=== PATIENT | male | born 1935 | race Caucasian/White ===

== ENCOUNTER → 2016-09-14 | Outpatient (REF) | payer MEDICARE ==
[~2016-09-14] MED LIST: /AUGM875TA OR; ACTO45TA OR; ASPI81TA45 OR; FISH1000 OR; HYDR25TA6 OR; LIPI20TA OR; LISI2.5T OR; LOPR50TA OR; OMEGA 3-6-9; PLAV75TA2 OR; TRIC145T19 OR
[2016-09-14 18:10] LABS: CALCIUM LEVEL 9.4 MG/DL (8.8-10.2); CREATININE FOR GFR 2.6 MG/DL (0.70-1.30); GLOMERULAR FILTRATION RATE 25.3 (>35); POTASSIUM SERUM 4.9 MEQ/L (3.5-5.1)
== END ==
LOC: M SFHCCLAY 12:23
PROVIDERS: ATTEND Family Medicine
DX: E11.40 Type 2 diabetes mellitus with diabetic neuropathy, unspecified (principal)
CPT/HCPCS: 80048; 83036; 93005; G0463

== ENCOUNTER → 2016-10-03 | Outpatient (REF) | payer MEDICARE ==
[2016-10-03 17:18] LABS: CALCIUM LEVEL 9.1 MG/DL (8.8-10.2); CREATININE FOR GFR 2.46 MG/DL (0.70-1.30); PHOSPHORUS LEVEL 4.2 MG/DL (2.5-4.9); POTASSIUM SERUM 4.4 MEQ/L (3.5-5.1)
== END ==
LOC: M SFHCCLAY 10:50
PROVIDERS: ATTEND Family Medicine
DX: N18.4 Chronic kidney disease, stage 4 (severe) (principal)

== ENCOUNTER → 2016-10-17 | Outpatient (REF) | payer MEDICARE | END | disposition home or self-care (01) | LOC: M SFHCCLAY 16:28 | PROVIDERS: ATTEND Family Medicine | DX: K52.9 Noninfective gastroenteritis and colitis, unspecified (principal); Z53.8 Procedure and treatment not carried out for other reasons ==

== ENCOUNTER → 2016-10-27 | Outpatient (REF) | payer MEDICARE | LOC: M SFHCCLAY 16:25 | PROVIDERS: ATTEND Family Medicine | DX: K52.9 Noninfective gastroenteritis and colitis, unspecified (principal) ==

== ENCOUNTER → 2016-12-21 | Outpatient (CLI) | payer MEDICARE ==
--- NOTE | 2016-12-21 15:09 | REP ---
Duplex extremity venous ultrasound: Bilateral lower extremities. History: Bilateral leg swelling. Findings: The deep veins are anechoic and fully compressible from the groin to the popliteal fossa in the left and right lower extremity. Color flow imaging is homogeneous. Spectral Doppler interrogation demonstrates intact respiratory variation in flow and normal manual augmentation of flow. There is no evidence of deep vein thrombosis. Impression: Negative bilateral lower extremity duplex venous ultrasound. No evidence of deep vein thrombosis. Signed by Roc Betts MD 12/21/2016 03:00 P
--- NOTE | 2016-12-21 16:02 | REP ---
Limited pelvic, bladder sonography: History: Incontinence. Findings: Scanning through the urine filled bladder shows smooth bladder nation. No bladder mass lesion is seen. Bilateral emptying ureteral jets are confirmed on color Doppler interrogation of the bladder lumen. Pre void bladder volume is calculated at 341 mL. Postvoid bladder volume calculation is 20.3 mL, 6% postvoid residual. Impression: No abnormality noted. Signed by Roc Betts MD 12/21/2016 04:48 P
== END ==
LOC: M RAD 13:08
PROVIDERS: ATTEND Family Medicine
DX: M79.89 Other specified soft tissue disorders (principal)

== ENCOUNTER → 2017-01-30 | Outpatient (REF) | payer MEDICARE ==
[2017-01-31 11:32] LABS: MEAN CORPUSCULAR HEMOGLOBIN 32.5 pg (27.0-33.0); MEAN CORPUSCULAR HGB CONC 34.8 g/dl (32.0-36.5); MEAN CORPUSCULAR VOLUME 93.3 fl (80.0-96.0); RED CELL DISTRIBUTION WIDTH 13.3 % (11.5-14.5); WHITE BLOOD COUNT 7.4 K/mm3 (4.0-10.0)
[2017-01-31 11:34] LABS: CALCIUM LEVEL 9.7 MG/DL (8.8-10.2); CREATININE FOR GFR 2.84 MG/DL (0.70-1.30); GLOMERULAR FILTRATION RATE 22.8 (>35); POTASSIUM SERUM 4.5 MEQ/L (3.5-5.1)
== END ==
LOC: M SFHCCLAY 15:32
PROVIDERS: ATTEND Family Medicine
DX: G44.1 Vascular headache, not elsewhere classified (principal)
CPT/HCPCS: 80048; 85027; G0463

== ENCOUNTER → 2017-02-02 | Outpatient (CLI) | payer MEDICARE ==
--- NOTE | 2017-02-02 15:01 | REP ---
MR BRAIN WITHOUT CONTRAST: HISTORY: Vascular headache. COMPARISON: CT 03/09/2016. Areas of increased signal intensity on T2-weighted images are present in the right frontal parietal, posterior left parietal and posterior left temporal lobes. There is dilatation of the overlying cortical sulci. These represent old infarctions. A small chronic hemorrhagic component is present in the posterior left temporal lobe infarction. Areas of increased signal intensity on T2-weighted images are present in the periventricular and subcortical white matter. This represents small vessel ischemic disease. Punctate areas of decreased signal intensity on T2 gradient echo images are present in the cerebellum. 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 There is no acute intraparenchymal hemorrhage, acute infarct, mass or midline shift. The ventricular system and cortical sulci was well as subarachnoid space in the posterior fossa are dilated consistent with moderate volume loss. There is no extracerebral collection. The sinuses are clear. IMPRESSION: 1. 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 2. Small vessel ischemic disease. 3. Moderate volume loss. Signed by Cesar Boogie MD 02/02/2017 03:07 P
== END ==
LOC: M RAD 13:26
PROVIDERS: ATTEND Family Medicine
DX: G44.1 Vascular headache, not elsewhere classified (principal)

== ENCOUNTER 2017-08-11 23:23 | Emergency (ER) | payer MEDICARE ==
[~2017-08-11] VITALS: Ht 157.5 cm; Wt 59.0 kg
[2017-08-12 01:38] VITALS: BP 186/81
--- NOTE | 2017-08-12 08:05 | ECGEPIP ---
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
== END 2017-08-12 01:56 | disposition home or self-care (01) ==
LOC: M ED 23:23
DX: E11.649 Type 2 diabetes mellitus with hypoglycemia without coma (principal); I10 Essential (primary) hypertension; E78.4 Other hyperlipidemia

== ENCOUNTER → 2017-09-04 | Outpatient (REF) | payer MEDICARE | LOC: M SFHCCLAY 15:21 | DX: E11.9 Type 2 diabetes mellitus without complications (principal); L08.9 Local infection of the skin and subcutaneous tissue, unspecified | CPT/HCPCS: 87186; 87205 ==

== ENCOUNTER → 2017-12-25 | Outpatient (REF) | payer MEDICARE | LOC: M LAB REF 18:10 | DX: D48.5 Neoplasm of uncertain behavior of skin (principal) | CPT/HCPCS: 88305 ==

== ENCOUNTER 2018-01-23 08:45 | Inpatient (IN) | payer MEDICARE ==
[2018-01-23] MEDS ORDERED: LORazepam 2 MG/ML VIAL (J2060) As Ordered (08:54)
[2018-01-23] MEDS: NS 1,000 ML IV (09:03)
[2018-01-23] MEDS: LORazepam 2 MG/ML VIAL (J2060) IV ×2 (09:04→09:12)
[2018-01-23 09:16] LABS: ABG HCO3 24.5 MEQ/L (22.0-26.0); ABG O2 SATURATION 98.9 % (95.0-99.0); ABG PARTIAL PRESSURE CO2 43.8 mmHg (35.0-45.0); ABG PARTIAL PRESSURE O2 148.3 mmHg (75.0-100.0); ABG STANDARD HCO3 23.7 MEQ/L (22.0-26.0); ABG TOTAL CO2 25.9 MEQ/L (23.0-31.0); ABG pH (ARTERIAL) 7.366 UNITS (7.350-7.450)
[2018-01-23 09:19] LABS: BASO % 0.1 % (0.0-1.0); HEMATOCRIT 37.8 % (42.0-52.0); HEMOGLOBIN 12.8 g/dl (13.5-17.5); IMMATURE GRANULOCYTE % 0.5 % (0-3.0); LYMPH # 0.7 10^3/uL (1.5-4.5); MEAN CORPUSCULAR HEMOGLOBIN 31.4 pg (27.0-33.0); MEAN CORPUSCULAR HGB CONC 33.9 g/dl (32.0-36.5); MEAN CORPUSCULAR VOLUME 92.9 fl (80.0-96.0); MONO # 0.8 10^3/uL (0.0-0.8); NEUTROPHILS # 12.2 10^3/uL (1.8-7.7); NEUTROPHILS % 88.4 % (36.0-66.0); PLATELET COUNT, AUTOMATED 237 10^3/uL (150-450); RED BLOOD COUNT 4.07 10^6/uL (4.30-6.10); RED CELL DISTRIBUTION WIDTH 13.6 % (11.5-14.5); WHITE BLOOD COUNT 13.8 10^3/uL (4.0-10.0)
[2018-01-23 09:22] LABS: BEDSIDE GLUCOSE 136 MG/DL (83-110)
[2018-01-23 09:39] LABS: AMMONIA 11 uMOL/L (<32)
[2018-01-23 09:43] LABS: LACTIC ACID SEPSIS PROTOCOL 1.4 MMOL/L (0.4-2.0)
[2018-01-23 09:46] LABS: ALBUMIN 4.1 GM/DL (3.2-5.2); ALBUMIN/GLOBULIN RATIO 1.21 (1.00-1.93); ALKALINE PHOSPHATASE 92 U/L (45-117); ALT/SGPT 29 U/L (12-78); ANION GAP 8 MEQ/L (8-16); AST/SGOT 70 U/L (7-37); BILIRUBIN,DIRECT 0.1 MG/DL (0.0-0.2); BILIRUBIN,TOTAL 0.4 MG/DL (0.2-1.0); BLOOD UREA NITROGEN 63 MG/DL (7-18); CALCIUM LEVEL 9.4 MG/DL (8.8-10.2); CARBON DIOXIDE LEVEL 25 MEQ/L (21-32); CHLORIDE LEVEL 110 MEQ/L (98-107); CREATININE FOR GFR 2.38 MG/DL (0.70-1.30); ETHYL ALCOHOL (ETHANOL) < 0.003 % (0.000-0.010); GLOMERULAR FILTRATION RATE 27.9 (>35); GLUCOSE, FASTING 133 MG/DL (70-100); POTASSIUM SERUM 5.1 MEQ/L (3.5-5.1); SALICYLATE LEVEL < 1.7 MG/DL (5.0-30.0); SODIUM LEVEL 143 MEQ/L (136-145); TOTAL PROTEIN 7.5 GM/DL (6.4-8.2); TROPONIN I 0.06 NG/ML (< 0.10)
[2018-01-23 09:52] LABS: OSMOLALITY SERUM 318 MOSM/KG (280-301)
[2018-01-23 09:56] LABS: CK-MB VALUE MASS 34.9 NG/ML (<3.6)
[2018-01-23 10:35] LABS: ACETAMINOPHEN LEVEL < 2.0 UG/ML (10.0-30.0)
[2018-01-23 10:36] LABS: CPK CREATINE PHOSPHOKINASE 2250 U/L (39-308); MB/CK RELATIVE INDEX 1.55 (< OR =4)
[2018-01-23 10:45] LABS: BEDSIDE GLUCOSE 113 MG/DL (83-110)
[2018-01-23 12:04] LABS: BEDSIDE GLUCOSE 119 MG/DL (83-110)
[2018-01-23 12:56] LABS: BEDSIDE GLUCOSE 110 MG/DL (83-110)
[2018-01-23] MEDS ORDERED: ONDANSETRON 4MG/2ML VIAL (J2405) IV (13:00)
[2018-01-23] MEDS ORDERED: ACETAMINOPHEN TAB 650MG DOSE (2X325MG) PO (13:00)
[2018-01-23] MEDS: D5W 1,000 ML IV (13:30)
[2018-01-23] MEDS: hydrALAZINE INJ 20 MG/ML VIAL IV (13:34)
[2018-01-23 13:56] LABS: CHOLESTEROL LEVEL 145 MG/DL (<200); CHOLESTEROL RISK RATIO 2.685 (<5); HDL CHOLESTEROL 54 MG/DL (>40); LDL CHOLESTEROL 79.2 MG/DL (<100); NON-HDL-C 91 MG/DL; TRIGLYCERIDES LEVEL 59 MG/DL (<150)
[2018-01-23 15:08] LABS: BEDSIDE GLUCOSE 115 MG/DL (83-110)
[2018-01-23 16:33] LABS: BEDSIDE GLUCOSE 158 MG/DL (83-110)
[2018-01-23] MEDS ORDERED: levETIRAcetam INJection 250 MG in D5W MINI-BAG PLUS 100 ML IV (19:45)
[2018-01-23] MEDS ORDERED: GLUCOSE 4 GM CHEW TABLET PO (20:15)
[2018-01-23] MEDS ORDERED: GLUCAGON FOR INJ 1 MG VIAL (J1610) SC (20:15)
[2018-01-23] MEDS ORDERED: DEXTROSE 50% 50 ML SYRINGE IV (20:15)
[2018-01-23] MEDS: levETIRAcetam INJection 250 MG in D5W 100 ML IV (22:56)
[2018-01-24 00:30] LABS: BEDSIDE GLUCOSE 181 MG/DL (83-110)
[2018-01-24] MEDS: hydrALAZINE INJ 20 MG/ML VIAL IV ×2 (00:39→06:22)
[2018-01-24] MEDS: HumaLOG INSULIN (NovoLOG) PER UNIT SC ×4 (00:40→17:55)
[2018-01-24] MEDS: METOPROLOL TART 25 MG TABLET NG ×3 (00:40→21:37)
[2018-01-24] MEDS: D5W 1,000 ML IV ×3 (00:41→09:45)
[2018-01-24] MEDS: SINEMET 25-100 MG TAB NG ×4 (00:47→21:37)
[2018-01-24 06:02] LABS: BEDSIDE GLUCOSE 133 MG/DL (83-110)
[2018-01-24 07:00] LABS: HEMATOCRIT 33.6 % (42.0-52.0); HEMOGLOBIN 11.4 g/dl (13.5-17.5); MEAN CORPUSCULAR HEMOGLOBIN 31.7 pg (27.0-33.0); MEAN CORPUSCULAR HGB CONC 33.9 g/dl (32.0-36.5); MEAN CORPUSCULAR VOLUME 93.3 fl (80.0-96.0); PLATELET COUNT, AUTOMATED 200 10^3/uL (150-450); RED CELL DISTRIBUTION WIDTH 13.6 % (11.5-14.5); WHITE BLOOD COUNT 14.5 10^3/uL (4.0-10.0)
[2018-01-24 07:18] LABS: ANION GAP 8 MEQ/L (8-16); BLOOD UREA NITROGEN 51 MG/DL (7-18); CALCIUM LEVEL 8.7 MG/DL (8.8-10.2); CARBON DIOXIDE LEVEL 25 MEQ/L (21-32); CHLORIDE LEVEL 107 MEQ/L (98-107); CREATININE FOR GFR 1.69 MG/DL (0.70-1.30); GLOMERULAR FILTRATION RATE 41.5 (>35); GLUCOSE, FASTING 172 MG/DL (70-100); POTASSIUM SERUM 3.9 MEQ/L (3.5-5.1); SODIUM LEVEL 140 MEQ/L (136-145)
[2018-01-24] MEDS: HEPARIN SOD (PORCINE) 5000 UNITS/ML VIAL SQ ×2 (08:56→21:38)
[2018-01-24] MEDS: CLOPIDOGREL 75 MG TAB NG (08:56)
[2018-01-24] MEDS: ASPIRIN 81 MG CHEW TABLET NG (08:56)
[2018-01-24] MEDS: ATORVASTATIN 20 MG TAB NG (08:56)
[2018-01-24] MEDS: DONEPEZIL 5 MG TAB NG (08:57)
[2018-01-24] MEDS: ALLOPURINOL 100 MG TAB NG (08:57)
[2018-01-24] MEDS ORDERED: ASPIRIN 300 MG SUPP PR (09:00)
[2018-01-24] MEDS: levETIRAcetam INJection 250 MG in D5W 100 ML IV (09:44)
[2018-01-24 12:05] LABS: BEDSIDE GLUCOSE 186 MG/DL (83-110)
[2018-01-24] MEDS: KCL 20MEQ IN 0.45NS 1000ML 1,000 ML IV (12:28)
[2018-01-24] MEDS: amLODIPine 5 MG TAB NG (12:29)
[2018-01-24 17:28] LABS: BEDSIDE GLUCOSE 72 MG/DL (83-110)
[2018-01-24] MEDS ORDERED: LORazepam 2 MG/ML VIAL (J2060) As Ordered (19:10)
[2018-01-24] MEDS: LACOSAMIDE 10MG/ML 20ML VIAL (VIMPAT) (C9254) IV (19:14)
[2018-01-24] MEDS: LORazepam 2 MG/ML VIAL (J2060) IV (19:20)
[2018-01-24] MEDS ORDERED: carBAMazepine XR 200 MG TAB PO (19:45)
[2018-01-24] MEDS: LORazepam 0.5 MG TAB PO (21:37)
[2018-01-24] MEDS: carBAMazepine 200 MG TAB PO (21:37)
[2018-01-24] MEDS: levETIRAcetam INJection 500 MG in D5W MINI-BAG PLUS 100 ML IV (21:40)
[2018-01-24] MEDS ORDERED: ACETAMINOPHEN TAB 650MG DOSE (2X325MG) NG (22:30)
[2018-01-24] MEDS ORDERED: GLUCOSE 4 GM CHEW TABLET NG (22:30)
[2018-01-25 00:29] LABS: BEDSIDE GLUCOSE 95 MG/DL (83-110)
[2018-01-25] MEDS: HumaLOG INSULIN (NovoLOG) PER UNIT SC ×4 (00:31→17:50)
[2018-01-25] MEDS: KCL 20MEQ IN 0.45NS 1000ML 1,000 ML IV ×2 (03:04→16:56)
[2018-01-25 05:54] LABS: HEMATOCRIT 31.3 % (42.0-52.0); HEMOGLOBIN 10.4 g/dl (13.5-17.5); MEAN CORPUSCULAR HEMOGLOBIN 31.5 pg (27.0-33.0); MEAN CORPUSCULAR HGB CONC 33.2 g/dl (32.0-36.5); MEAN CORPUSCULAR VOLUME 94.8 fl (80.0-96.0); PLATELET COUNT, AUTOMATED 178 10^3/uL (150-450); RED CELL DISTRIBUTION WIDTH 13.5 % (11.5-14.5); WHITE BLOOD COUNT 11.7 10^3/uL (4.0-10.0)
[2018-01-25 06:17] LABS: ANION GAP 6 MEQ/L (8-16); BLOOD UREA NITROGEN 45 MG/DL (7-18); CALCIUM LEVEL 8.1 MG/DL (8.8-10.2); CARBON DIOXIDE LEVEL 26 MEQ/L (21-32); CHLORIDE LEVEL 107 MEQ/L (98-107); CPK CREATINE PHOSPHOKINASE 303 U/L (39-308); CREATININE FOR GFR 1.63 MG/DL (0.70-1.30); GLOMERULAR FILTRATION RATE 43.2 (>35); GLUCOSE, FASTING 104 MG/DL (70-100); POTASSIUM SERUM 4.6 MEQ/L (3.5-5.1); SODIUM LEVEL 139 MEQ/L (136-145)
[2018-01-25] MEDS: levETIRAcetam INJection 500 MG in D5W MINI-BAG PLUS 100 ML IV ×2 (09:27→20:50)
[2018-01-25] MEDS: SINEMET 25-100 MG TAB NG ×3 (09:27→20:56)
[2018-01-25] MEDS: ASPIRIN 81 MG CHEW TABLET NG (09:27)
[2018-01-25] MEDS: amLODIPine 5 MG TAB NG (09:27)
[2018-01-25] MEDS: METOPROLOL TART 25 MG TABLET NG ×2 (09:28→20:56)
[2018-01-25] MEDS: ATORVASTATIN 20 MG TAB NG (09:28)
[2018-01-25] MEDS: CLOPIDOGREL 75 MG TAB NG (09:28)
[2018-01-25] MEDS: LORazepam 0.5 MG TAB NG ×2 (09:28→20:55)
[2018-01-25] MEDS: carBAMazepine 200 MG TAB NG ×3 (09:28→20:56)
[2018-01-25] MEDS: ALLOPURINOL 100 MG TAB NG (09:28)
[2018-01-25] MEDS: DONEPEZIL 5 MG TAB NG (09:28)
[2018-01-25] MEDS: HEPARIN SOD (PORCINE) 5000 UNITS/ML VIAL SQ ×2 (09:29→20:57)
[2018-01-25 12:36] LABS: BEDSIDE GLUCOSE 109 MG/DL (83-110)
[2018-01-25 16:48] LABS: BEDSIDE GLUCOSE 101 MG/DL (83-110)
[2018-01-25 23:39] LABS: BEDSIDE GLUCOSE 113 MG/DL (83-110)
[2018-01-26] MEDS: HumaLOG INSULIN (NovoLOG) PER UNIT SC ×4 (05:27→18:06)
[2018-01-26] MEDS: KCL 20MEQ IN 0.45NS 1000ML 1,000 ML IV ×2 (05:27→18:07)
[2018-01-26 05:32] LABS: BEDSIDE GLUCOSE 111 MG/DL (83-110)
[2018-01-26 06:03] LABS: HEMATOCRIT 30.2 % (42.0-52.0); HEMOGLOBIN 10.1 g/dl (13.5-17.5); MEAN CORPUSCULAR HEMOGLOBIN 31.7 pg (27.0-33.0); MEAN CORPUSCULAR HGB CONC 33.4 g/dl (32.0-36.5); MEAN CORPUSCULAR VOLUME 94.7 fl (80.0-96.0); PLATELET COUNT, AUTOMATED 173 10^3/uL (150-450); RED BLOOD COUNT 3.19 10^6/uL (4.30-6.10); RED CELL DISTRIBUTION WIDTH 13.6 % (11.5-14.5); WHITE BLOOD COUNT 8.8 10^3/uL (4.0-10.0)
[2018-01-26 06:21] LABS: ANION GAP 7 MEQ/L (8-16); BLOOD UREA NITROGEN 45 MG/DL (7-18); CARBON DIOXIDE LEVEL 24 MEQ/L (21-32); CHLORIDE LEVEL 106 MEQ/L (98-107); CREATININE FOR GFR 1.61 MG/DL (0.70-1.30); GLOMERULAR FILTRATION RATE 43.8 (>35); GLUCOSE, FASTING 111 MG/DL (70-100); POTASSIUM SERUM 4.6 MEQ/L (3.5-5.1); SODIUM LEVEL 137 MEQ/L (136-145)
[2018-01-26] MEDS: ALLOPURINOL 100 MG TAB NG (09:13)
[2018-01-26] MEDS: ASPIRIN 81 MG CHEW TABLET NG (09:13)
[2018-01-26] MEDS: levETIRAcetam INJection 500 MG in D5W MINI-BAG PLUS 100 ML IV ×2 (09:13→20:45)
[2018-01-26] MEDS: DONEPEZIL 5 MG TAB NG (09:13)
[2018-01-26] MEDS: HEPARIN SOD (PORCINE) 5000 UNITS/ML VIAL SQ ×2 (09:13→20:44)
[2018-01-26] MEDS: amLODIPine 5 MG TAB NG (09:14)
[2018-01-26] MEDS: CLOPIDOGREL 75 MG TAB NG (09:14)
[2018-01-26] MEDS: METOPROLOL TART 25 MG TABLET NG ×2 (09:14→20:44)
[2018-01-26] MEDS: SINEMET 25-100 MG TAB NG ×3 (09:14→20:44)
[2018-01-26] MEDS: ATORVASTATIN 20 MG TAB NG (09:14)
[2018-01-26] MEDS: carBAMazepine 200 MG TAB NG ×3 (09:14→20:44)
[2018-01-26 11:52] LABS: BEDSIDE GLUCOSE 126 MG/DL (83-110)
[2018-01-26 17:24] LABS: BEDSIDE GLUCOSE 138 MG/DL (83-110)
[2018-01-27 00:11] LABS: BEDSIDE GLUCOSE 142 MG/DL (83-110)
[2018-01-27] MEDS: HumaLOG INSULIN (NovoLOG) PER UNIT SC ×4 (00:44→17:36)
[2018-01-27 04:50] LABS: HEMATOCRIT 29.3 % (42.0-52.0); HEMOGLOBIN 9.9 g/dl (13.5-17.5); MEAN CORPUSCULAR HEMOGLOBIN 31.5 pg (27.0-33.0); MEAN CORPUSCULAR HGB CONC 33.8 g/dl (32.0-36.5); MEAN CORPUSCULAR VOLUME 93.3 fl (80.0-96.0); PLATELET COUNT, AUTOMATED 194 10^3/uL (150-450); RED BLOOD COUNT 3.14 10^6/uL (4.30-6.10); RED CELL DISTRIBUTION WIDTH 13.7 % (11.5-14.5); WHITE BLOOD COUNT 7.7 10^3/uL (4.0-10.0)
[2018-01-27 05:04] LABS: ANION GAP 5 MEQ/L (8-16); BLOOD UREA NITROGEN 46 MG/DL (7-18); CALCIUM LEVEL 8.1 MG/DL (8.8-10.2); CARBON DIOXIDE LEVEL 25 MEQ/L (21-32); CHLORIDE LEVEL 109 MEQ/L (98-107); CREATININE FOR GFR 1.46 MG/DL (0.70-1.30); GLOMERULAR FILTRATION RATE 49.1 (>35); GLUCOSE, FASTING 140 MG/DL (70-100); POTASSIUM SERUM 4.7 MEQ/L (3.5-5.1); SODIUM LEVEL 139 MEQ/L (136-145)
[2018-01-27] MEDS: levETIRAcetam INJection 500 MG in D5W MINI-BAG PLUS 100 ML IV (09:31)
[2018-01-27] MEDS: ALLOPURINOL 100 MG TAB NG (09:31)
[2018-01-27] MEDS: ATORVASTATIN 20 MG TAB NG (09:31)
[2018-01-27] MEDS: ASPIRIN 81 MG CHEW TABLET NG (09:31)
[2018-01-27] MEDS: CLOPIDOGREL 75 MG TAB NG (09:31)
[2018-01-27] MEDS: HEPARIN SOD (PORCINE) 5000 UNITS/ML VIAL SQ (09:31)
[2018-01-27] MEDS: SINEMET 25-100 MG TAB NG ×2 (09:31→17:02)
[2018-01-27] MEDS: carBAMazepine 200 MG TAB NG ×2 (09:32→17:02)
[2018-01-27] MEDS: amLODIPine 5 MG TAB NG (09:32)
[2018-01-27] MEDS: METOPROLOL TART 25 MG TABLET NG (09:32)
[2018-01-27 12:09] LABS: BEDSIDE GLUCOSE 222 MG/DL (83-110)
[2018-01-27 12:14] LABS: CARBAMAZEPINE (TEGRETOL) LEVEL 13.4 UG/ML (4.0-10.0)
[2018-01-27] MEDS: LACOSAMIDE 10MG/ML 20ML VIAL (VIMPAT) (C9254) IV (13:32)
[2018-01-27] MEDS: KCL 20MEQ IN D5/0.45NS 1000ML 1,000 ML IV (14:53)
[2018-01-27] MEDS ORDERED: PROPOFOL 1,000 MG/100 ML VIAL As Ordered (14:54)
[2018-01-27] MEDS: PROPOFOL 1,000 MG in APPROPRIATE DILUENT 1 EA IV (15:26)
[2018-01-27 15:51] LABS: ABG PARTIAL PRESSURE O2 171.4 mmHg (75.0-100.0); ABG pH (ARTERIAL) 7.441 UNITS (7.350-7.450)
[2018-01-27 15:52] LABS: ABG BASE EXCESS -1.1 (-2.0-2.0); ABG O2 SATURATION 99.2 % (95.0-99.0); ABG TOTAL CO2 23.7 MEQ/L (23.0-31.0)
[2018-01-27 15:54] LABS: ABG HCO3 22.6 MEQ/L (22.0-26.0)
[2018-01-27 15:55] LABS: ABG STANDARD HCO3 23.6 MEQ/L (22.0-26.0)
[2018-01-27] MEDS ORDERED: IPRATROPIUM 0.5MG/ALBUTEROL 2.5MG INH SOL UD 3ML (DUONEB)(J7620) NEB (16:00)
[2018-01-27] MEDS: PANTOPRAZOLE 40MG INJ (PROTONIX) (C9113) IV (17:01)
[2018-01-27 17:35] LABS: BEDSIDE GLUCOSE 127 MG/DL (83-110)
[2018-01-27] MEDS ORDERED: CHLORHEXIDINE ORAL RINSE 0.12%/15ML 120ML BOTTLE MT (21:00)
[2018-01-27] MEDS ORDERED: LACOSAMIDE 10MG/ML 20ML VIAL (VIMPAT) (C9254) IV (21:00)
[2018-01-27] MEDS ORDERED: METOPROLOL TART 12.5 MG PER 1/2 TAB NG (21:00)
[2018-01-31 14:16] LABS: LEVETIRACETAM (KEPPRA) 31.9 ug/mL (10.0-40.0)
== END 2018-01-27 18:21 | disposition short-term general hospital (02) | DRG 100 ==
LOC: M ICU 01-27 14:36 → M PCU 01-24 15:57 → M ED 08:45 → M ED INP 13:08
PROC: 0BH17EZ Insertion of Endotracheal Airway into Trachea, Via Natural or Artificial Opening (ICD-10-PCS; principal; 2018-01-27)
PROC: 5A1935Z Respiratory Ventilation, Less than 24 Consecutive Hours (ICD-10-PCS; 2018-01-27)
DX: G40.101 Localization-related (focal) (partial) symptomatic epilepsy and epileptic syndromes with simple partial seizures, not intractable, with status epilepticus (principal); G93.41 Metabolic encephalopathy; M62.82 Rhabdomyolysis; I10 Essential (primary) hypertension; E78.5 Hyperlipidemia, unspecified; E11.22 Type 2 diabetes mellitus with diabetic chronic kidney disease; N18.9 Chronic kidney disease, unspecified; I25.10 Atherosclerotic heart disease of native coronary artery without angina pectoris; F02.80 Dementia in other diseases classified elsewhere, unspecified severity, without behavioral disturbance, psychotic disturbance, mood disturbance, and anxiety; G31.83 Neurocognitive disorder with Lewy bodies; Z95.1 Presence of aortocoronary bypass graft; Z79.82 Long term (current) use of aspirin; Z79.84 Long term (current) use of oral hypoglycemic drugs; Z79.899 Other long term (current) drug therapy; Z79.02 Long term (current) use of antithrombotics/antiplatelets

== ENCOUNTER 2018-02-06 19:50 | Inpatient (IN) | payer MEDICARE ==
[2018-02-06] MEDS: ENOXAPARIN 40 MG/0.4 ML SYRINGE (J1650) SC (09:00)
[2018-02-06] MEDS ORDERED: ACETAMINOPHEN TAB 650MG DOSE (2X325MG) PO (20:00)
[2018-02-06] MEDS: hydrALAZINE INJ 20 MG/ML VIAL IV (20:41)
[2018-02-06] MEDS ORDERED: MOM 30ML SUSPENSION UDC PO (22:00)
[2018-02-06] MEDS ORDERED: BISACODYL 10 MG SUPP PR (22:00)
[2018-02-06] MEDS ORDERED: FLEET ENEMA PR (22:00)
[2018-02-06] MEDS ORDERED: GLUCOSE 4 GM CHEW TABLET PO (22:15)
[2018-02-06] MEDS ORDERED: GLUCAGON FOR INJ 1 MG VIAL (J1610) SC (22:15)
[2018-02-06] MEDS ORDERED: DEXTROSE 50% 50 ML SYRINGE IV (22:15)
[2018-02-06] MEDS ORDERED: ONDANSETRON 4MG/2ML VIAL (J2405) IV (22:15)
[2018-02-06] MEDS ORDERED: SODIUM CHLORIDE NASAL 0.65% SPRAY BTL (OCEAN) (22:15)
[2018-02-06] MEDS ORDERED: guaiFENesin DM LIQ 10ML UD PO (22:15)
[2018-02-06] MEDS: NS 0.45% 1,000 ML IV (23:24)
[2018-02-07] MEDS ORDERED: SODIUM CHLORIDE NASAL 0.65% SPRAY BTL (OCEAN)
[2018-02-07] MEDS ORDERED: VALPROATE SOD 500 MG/5 ML IV
[2018-02-07] MEDS ORDERED: BISACODYL 10 MG SUPP PR
[2018-02-07] MEDS ORDERED: ONDANSETRON 4 MG TAB (S0181) NG
[2018-02-07] MEDS ORDERED: MOM 30ML SUSPENSION UDC NG
[2018-02-07] MEDS ORDERED: hydrALAZINE INJ 20 MG/ML VIAL IM
[2018-02-07] MEDS ORDERED: guaiFENesin DM LIQ 10ML UD NG
[2018-02-07] MEDS ORDERED: ACETAMINOPHEN 325 MG TAB NG
[2018-02-07] MEDS ORDERED: ONDANSETRON 4MG/2ML VIAL (J2405) IM
[2018-02-07] MEDS: SINEMET 25-100 MG TAB NG ×3 (00:26→21:34)
[2018-02-07] MEDS: levETIRAcetam INJection 500 MG in D5W MINI-BAG PLUS 100 ML IV ×2 (00:26→01:57)
[2018-02-07] MEDS: ATORVASTATIN 20 MG TAB NG ×3 (00:26→21:44)
[2018-02-07] MEDS: hydrALAZINE INJ 20 MG/ML VIAL IV ×3 (00:26→17:43)
[2018-02-07 00:27] LABS: BEDSIDE GLUCOSE 86 MG/DL (83-110)
[2018-02-07] MEDS ORDERED: ACYCLOVIR IV ×2 (02:00)
[2018-02-07] MEDS ORDERED: NS IV (02:00)
[2018-02-07] MEDS: ACYCLOVIR IV ×2 (03:00→15:50)
[2018-02-07] MEDS: NS IV ×2 (03:00→15:50)
[2018-02-07] MEDS: VALPROATE SOD INJ 750 MG in D5W 50 ML IV ×2 (05:06→16:56)
[2018-02-07 06:02] LABS: BEDSIDE GLUCOSE 110 MG/DL (83-110)
[2018-02-07 06:12] LABS: BASO % 0.2 % (0.0-1.0); EOS # 0.1 10^3/uL (0.0-0.50); EOS % 0.6 % (0.0-3.0); HEMOGLOBIN 7.6 g/dl (13.5-17.5); IMMATURE GRANULOCYTE % 2.6 % (0-3.0); LYMPH # 0.5 10^3/uL (1.5-4.5); LYMPH % 4.1 % (24.0-44.0); MEAN CORPUSCULAR HEMOGLOBIN 31.1 pg (27.0-33.0); MEAN CORPUSCULAR VOLUME 94.3 fl (80.0-96.0); MONO # 1.1 10^3/uL (0.0-0.8); MONO % 8.7 % (0.0-5.0); NEUTROPHILS # 10.8 10^3/uL (1.8-7.7); NEUTROPHILS % 83.8 % (36.0-66.0); RED BLOOD COUNT 2.44 10^6/uL (4.30-6.10); RED CELL DISTRIBUTION WIDTH 14.6 % (11.5-14.5); WHITE BLOOD COUNT 12.8 10^3/uL (4.0-10.0)
[2018-02-07 06:42] LABS: ANION GAP 10 MEQ/L (8-16); BLOOD UREA NITROGEN 43 MG/DL (7-18); CALCIUM LEVEL 7.2 MG/DL (8.8-10.2); CARBON DIOXIDE LEVEL 23 MEQ/L (21-32); CHLORIDE LEVEL 114 MEQ/L (98-107); CREATININE FOR GFR 1.39 MG/DL (0.70-1.30); GLUCOSE, FASTING 114 MG/DL (70-100); PLATELET COUNT, AUTOMATED 78 10^3/uL (150-450); POTASSIUM SERUM 3.3 MEQ/L (3.5-5.1); SODIUM LEVEL 147 MEQ/L (136-145)
[2018-02-07 06:43] LABS: IMMATURE PLATELET FRACTION % 1.3 % (0.0-10.9)
[2018-02-07] MEDS: HumaLOG INSULIN (NovoLOG) PER UNIT SC ×4 (06:51→17:42)
[2018-02-07] MEDS: SODIUM CHLORIDE 0.9% INJ 10 ML SYR IV ×2 (06:51→17:43)
[2018-02-07] MEDS ORDERED: ASPIRIN 81 MG CHEW TABLET NG (09:00)
[2018-02-07] MEDS ORDERED: HEPARIN SOD (PORCINE) 5000 UNITS/ML VIAL SC (09:00)
[2018-02-07] MEDS: ENOXAPARIN 40 MG/0.4 ML SYRINGE (J1650) SC (09:00)
[2018-02-07] MEDS ORDERED: SINEMET 25-100 MG TAB NG (09:00)
[2018-02-07] MEDS ORDERED: levETIRAcetam 500 MG/5 ML VIAL (KEPPRA IV)(J1953) IV ×2 (09:00)
[2018-02-07] MEDS ORDERED: amLODIPine 10 MG TAB NG ×2 (09:00)
[2018-02-07 09:04] LABS: RETIC HEMOGLOBIN EQUIVALENT 38.5 pg (24-36); RETICULOCYTE # 7.5 10^9/L (17-77); RETICULOCYTE % 0.3 % (0.5-1.5)
[2018-02-07 09:06] LABS: SLIDE REVIEW Report; SOURCE PERIPHERAL SMEAR
[2018-02-07 09:07] LABS: REASON FOR REVIEW ANEMIA / RBC MORPH
[2018-02-07] MEDS: POTASSIUM CHLORIDE 10% LIQ 20 MEQ/15 ML UDC NG (10:13)
[2018-02-07 10:14] LABS: LDH LACTATE DEHYDROGENASE 192 U/L (87-241)
[2018-02-07] MEDS: PANTOPRAZOLE 40MG INJ (PROTONIX) (C9113) IV (10:14)
[2018-02-07] MEDS: FUROSEMIDE 40 MG/4 ML VIAL (J1940) IV ×3 (10:14→17:45)
[2018-02-07] MEDS: ASPIRIN 81 MG ENTERIC TAB NG (10:15)
[2018-02-07] MEDS: amLODIPine 10 MG TAB NG (10:15)
[2018-02-07] MEDS: DOCUSATE SOD LIQ 100MG/10ML UDC NG (10:15)
[2018-02-07 12:20] LABS: BEDSIDE GLUCOSE 161 MG/DL (83-110)
[2018-02-07 12:31] LABS: HEMATOCRIT 24.8 % (42.0-52.0); HEMOGLOBIN 8.3 g/dl (13.5-17.5); MEAN CORPUSCULAR VOLUME 93.6 fl (80.0-96.0); RED BLOOD COUNT 2.65 10^6/uL (4.30-6.10); WHITE BLOOD COUNT 16.1 10^3/uL (4.0-10.0)
[2018-02-07 12:32] LABS: MEAN CORPUSCULAR HEMOGLOBIN 31.3 pg (27.0-33.0); MEAN CORPUSCULAR HGB CONC 33.5 g/dl (32.0-36.5); RED CELL DISTRIBUTION WIDTH 14.6 % (11.5-14.5)
[2018-02-07 12:35] LABS: PLATELET COUNT, AUTOMATED 83 10^3/uL (150-450)
[2018-02-07 13:00] LABS: ALBUMIN 1.7 GM/DL (3.2-5.2); ALBUMIN/GLOBULIN RATIO 0.45 (1.00-1.93); ALKALINE PHOSPHATASE 92 U/L (45-117); ALT/SGPT 8 U/L (12-78); ANION GAP 5 MEQ/L (8-16); AST/SGOT 28 U/L (7-37); BILIRUBIN,TOTAL 0.3 MG/DL (0.2-1.0); BLOOD UREA NITROGEN 42 MG/DL (7-18); CALCIUM LEVEL 7.3 MG/DL (8.8-10.2); CARBON DIOXIDE LEVEL 26 MEQ/L (21-32); CHLORIDE LEVEL 115 MEQ/L (98-107); CREATININE FOR GFR 1.47 MG/DL (0.70-1.30); GLOMERULAR FILTRATION RATE 48.7 (>35); GLUCOSE, FASTING 151 MG/DL (70-100); POTASSIUM SERUM 3.7 MEQ/L (3.5-5.1); SODIUM LEVEL 146 MEQ/L (136-145); TOTAL PROTEIN 5.5 GM/DL (6.4-8.2)
[2018-02-07 17:35] LABS: BEDSIDE GLUCOSE 132 MG/DL (83-110)
[2018-02-07] MEDS ORDERED: PILL CRUSHER/CUTTER 1 EACH XX (18:00)
[2018-02-07] MEDS ORDERED: ATORVASTATIN 20 MG TAB NG (21:00)
[2018-02-08 00:18] LABS: BEDSIDE GLUCOSE 130 MG/DL (83-110)
[2018-02-08] MEDS: levETIRAcetam INJection 500 MG in D5W MINI-BAG PLUS 100 ML IV ×3 (00:25→23:50)
[2018-02-08] MEDS: HumaLOG INSULIN (NovoLOG) PER UNIT SC ×5 (00:26→23:51)
[2018-02-08] MEDS: FUROSEMIDE 40 MG/4 ML VIAL (J1940) IV ×5 (00:29→23:51)
[2018-02-08] MEDS: VALPROATE SOD INJ 750 MG in D5W 50 ML IV ×2 (04:32→15:25)
[2018-02-08] MEDS: SODIUM CHLORIDE 0.9% INJ 10 ML SYR IV ×2 (05:27→17:55)
[2018-02-08] MEDS: hydrALAZINE INJ 20 MG/ML VIAL IV ×5 (05:27→23:50)
[2018-02-08 05:34] LABS: HEMATOCRIT 24.2 % (42.0-52.0); MEAN CORPUSCULAR HEMOGLOBIN 30.7 pg (27.0-33.0); MEAN CORPUSCULAR HGB CONC 33.1 g/dl (32.0-36.5); MEAN CORPUSCULAR VOLUME 92.7 fl (80.0-96.0); RED BLOOD COUNT 2.61 10^6/uL (4.30-6.10); RED CELL DISTRIBUTION WIDTH 14.4 % (11.5-14.5); WHITE BLOOD COUNT 18.7 10^3/uL (4.0-10.0)
[2018-02-08 05:35] LABS: PLATELET COUNT, AUTOMATED 90 10^3/uL (150-450)
[2018-02-08 06:05] LABS: ANION GAP 9 MEQ/L (8-16); BLOOD UREA NITROGEN 42 MG/DL (7-18); CALCIUM LEVEL 7.3 MG/DL (8.8-10.2); CARBON DIOXIDE LEVEL 26 MEQ/L (21-32); CHLORIDE LEVEL 111 MEQ/L (98-107); CREATININE FOR GFR 1.46 MG/DL (0.70-1.30); GLOMERULAR FILTRATION RATE 49.1 (>35); GLUCOSE, FASTING 124 MG/DL (70-100); POTASSIUM SERUM 3.3 MEQ/L (3.5-5.1); SODIUM LEVEL 146 MEQ/L (136-145)
[2018-02-08 06:06] LABS: VALPROIC ACID (DEPAKOTE) 67.2 UG/ML (50.0-100.0)
[2018-02-08 08:06] LABS: HAPTOGLOBIN 348 mg/dL (34-200)
[2018-02-08] MEDS: POTASSIUM CHLORIDE 10% LIQ 20 MEQ/15 ML UDC NG (08:20)
[2018-02-08] MEDS: PANTOPRAZOLE 40MG INJ (PROTONIX) (C9113) IV (08:21)
[2018-02-08] MEDS: ASPIRIN 81 MG ENTERIC TAB NG (08:21)
[2018-02-08] MEDS: SINEMET 25-100 MG TAB NG ×3 (08:21→20:06)
[2018-02-08] MEDS: ACETAMINOPHEN TAB 650MG DOSE (2X325MG) NG (08:21)
[2018-02-08] MEDS: amLODIPine 10 MG TAB NG (08:21)
[2018-02-08] MEDS: DOCUSATE SOD LIQ 100MG/10ML UDC NG (08:23)
[2018-02-08] MEDS: CEFEPIME HCL 2 GM in D5W MINI-BAG PLUS 50 ML IV ×2 (09:38→20:06)
[2018-02-08] MEDS: VANCOMYCIN HCL 1,000 MG, VIAL MATE ADAPTER 1 EACH in D5W 250 ML IV (10:17)
[2018-02-08] MEDS: VANCOMYCIN HCL 500 MG in D5W MINI-BAG PLUS 100 ML IV (11:19)
[2018-02-08 11:52] LABS: BEDSIDE GLUCOSE 221 MG/DL (83-110)
[2018-02-08 14:28] LABS: ANION GAP 6 MEQ/L (8-16); BLOOD UREA NITROGEN 44 MG/DL (7-18); CALCIUM LEVEL 7.2 MG/DL (8.8-10.2); CARBON DIOXIDE LEVEL 27 MEQ/L (21-32); CHLORIDE LEVEL 109 MEQ/L (98-107); CREATININE FOR GFR 1.52 MG/DL (0.70-1.30); GLOMERULAR FILTRATION RATE 46.9 (>35); GLUCOSE, FASTING 171 MG/DL (70-100); POTASSIUM SERUM 3.2 MEQ/L (3.5-5.1); SODIUM LEVEL 142 MEQ/L (136-145)
[2018-02-08 15:11] LABS: CSF TUBE# GLU TUBE 2; CSF TUBE# TP TUBE 2; GLUCOSE CSF 95 MG/DL (40-75); TOTAL PROTEIN,CSF 46.7 MG/DL (15-45)
[2018-02-08 15:22] LABS: CSF RBC < 2 10^3/uL (<2)
[2018-02-08 15:23] LABS: APPEARANCE, CSF CLEAR (CLEAR); COLOR, CSF COLORLESS (COLORLESS); CSF DIFF IF INDICATED? NO (NO); CSF TUBE# CELL CNT TUBE 1; CSF WBC 2 /uL (0-10)
[2018-02-08 15:24] LABS: CSF RBC < 2 10^3/uL (<2)
[2018-02-08 15:25] LABS: APPEARANCE, CSF CLEAR (CLEAR); COLOR, CSF COLORLESS (COLORLESS); CSF DIFF IF INDICATED? NO (NO); CSF TUBE# CELL CNT TUBE 4; CSF WBC 3 /uL (0-10)
[2018-02-08] MEDS: KCL 10MEQ/100ML SWI (KRUN) 10 MEQ in APPROPRIATE DILUENT 1 EA IV ×3 (15:52→17:56)
[2018-02-08 17:48] LABS: BEDSIDE GLUCOSE 137 MG/DL (83-110)
[2018-02-08 18:01] LABS: AMMONIA 15 uMOL/L (<32)
[2018-02-08] MEDS: ATORVASTATIN 20 MG TAB NG (20:06)
[2018-02-08 23:45] LABS: BEDSIDE GLUCOSE 169 MG/DL (83-110)
[2018-02-09] MEDS: VANCOMYCIN HCL 1,000 MG, VIAL MATE ADAPTER 1 EACH in D5W 250 ML IV ×2 (04:32→22:12)
[2018-02-09] MEDS: VALPROATE SOD INJ 750 MG in D5W 50 ML IV (04:32)
[2018-02-09 04:58] LABS: HEMATOCRIT 22.7 % (42.0-52.0); HEMOGLOBIN 7.6 g/dl (13.5-17.5); MEAN CORPUSCULAR HEMOGLOBIN 30.4 pg (27.0-33.0); MEAN CORPUSCULAR HGB CONC 33.5 g/dl (32.0-36.5); MEAN CORPUSCULAR VOLUME 90.8 fl (80.0-96.0); PLATELET COUNT, AUTOMATED 107 10^3/uL (150-450); RED CELL DISTRIBUTION WIDTH 14.2 % (11.5-14.5); WHITE BLOOD COUNT 14.2 10^3/uL (4.0-10.0)
[2018-02-09] MEDS: FUROSEMIDE 40 MG/4 ML VIAL (J1940) IV ×4 (05:08→23:50)
[2018-02-09] MEDS: hydrALAZINE INJ 20 MG/ML VIAL IV ×4 (05:09→23:50)
[2018-02-09] MEDS: SODIUM CHLORIDE 0.9% INJ 10 ML SYR IV ×2 (05:09→17:42)
[2018-02-09 05:31] LABS: ANION GAP 8 MEQ/L (8-16); BLOOD UREA NITROGEN 44 MG/DL (7-18); CALCIUM LEVEL 7.2 MG/DL (8.8-10.2); CARBON DIOXIDE LEVEL 29 MEQ/L (21-32); CHLORIDE LEVEL 106 MEQ/L (98-107); CREATININE FOR GFR 1.55 MG/DL (0.70-1.30); GLOMERULAR FILTRATION RATE 45.8 (>35); GLUCOSE, FASTING 200 MG/DL (70-100); POTASSIUM SERUM 3.4 MEQ/L (3.5-5.1); SODIUM LEVEL 143 MEQ/L (136-145)
[2018-02-09] MEDS: HumaLOG INSULIN (NovoLOG) PER UNIT SC ×4 (06:00→23:50)
[2018-02-09] MEDS: DOCUSATE SOD LIQ 100MG/10ML UDC NG (06:51)
[2018-02-09] MEDS: ASPIRIN 81 MG ENTERIC TAB NG (08:34)
[2018-02-09] MEDS: ACETAMINOPHEN TAB 650MG DOSE (2X325MG) NG (08:34)
[2018-02-09] MEDS: PANTOPRAZOLE 40MG INJ (PROTONIX) (C9113) IV (08:34)
[2018-02-09] MEDS: CEFEPIME HCL 2 GM in D5W MINI-BAG PLUS 50 ML IV ×2 (08:34→20:25)
[2018-02-09] MEDS: POTASSIUM CHLORIDE 10% LIQ 20 MEQ/15 ML UDC NG (08:34)
[2018-02-09] MEDS: SINEMET 25-100 MG TAB NG ×3 (08:35→20:25)
[2018-02-09] MEDS: amLODIPine 10 MG TAB NG (08:35)
[2018-02-09 11:01] LABS: URIC ACID 8.8 MG/DL (3.5-7.2)
[2018-02-09 11:53] LABS: BEDSIDE GLUCOSE 173 MG/DL (83-110)
[2018-02-09] MEDS: levETIRAcetam INJection 500 MG in D5W MINI-BAG PLUS 100 ML IV (12:07)
[2018-02-09 12:11] LABS: REASON FOR REVIEW ANEMIA / RBC MORPH; SLIDE REVIEW Report; SOURCE PERIPHERAL SMEAR
[2018-02-09 12:39] LABS: ERYTHROCYTE SEDIMENTATION RATE 79 mm/hr (0-20)
[2018-02-09] MEDS: COLCHICINE 0.6 MG TAB NG ×2 (12:48→13:56)
[2018-02-09 13:11] LABS: IMMEDIATE SPIN CROSSMATCH 1 2
[2018-02-09 14:25] LABS: ALBUMIN 1.5 GM/DL (3.2-5.2); ANION GAP 7 MEQ/L (8-16); BLOOD UREA NITROGEN 44 MG/DL (7-18); CALCIUM LEVEL 7.3 MG/DL (8.8-10.2); CARBON DIOXIDE LEVEL 29 MEQ/L (21-32); CHLORIDE LEVEL 106 MEQ/L (98-107); CREATININE FOR GFR 1.64 MG/DL (0.70-1.30); GLOMERULAR FILTRATION RATE 42.9 (>35); GLUCOSE, FASTING 154 MG/DL (70-100); PHOSPHORUS LEVEL 1.4 MG/DL (2.5-4.9); POTASSIUM SERUM 3.4 MEQ/L (3.5-5.1); SODIUM LEVEL 142 MEQ/L (136-145)
[2018-02-09] MEDS: levETIRAcetam INJection 250 MG in D5W 100 ML IV (14:59)
[2018-02-09] MEDS: VALPROATE SOD INJ 1,000 MG in D5W 50 ML IV (16:28)
[2018-02-09 17:33] LABS: BEDSIDE GLUCOSE 162 MG/DL (83-110)
[2018-02-09] MEDS: POTASSIUM CHLORIDE 10% LIQ 20 MEQ/15 ML UDC PO (17:40)
[2018-02-09] MEDS: LORazepam 2 MG/ML VIAL (J2060) IV (18:33)
[2018-02-09] MEDS ORDERED: LORazepam 2 MG/ML VIAL (J2060) IV (19:15)
[2018-02-09] MEDS: ATORVASTATIN 20 MG TAB NG (20:25)
[2018-02-09 21:39] LABS: VANCOMYCIN LEVEL TROUGH 19.3 UG/ML (10.0-20.0)
[2018-02-09 23:31] LABS: BEDSIDE GLUCOSE 147 MG/DL (83-110)
[2018-02-09] MEDS: levETIRAcetam INJection 750 MG in D5W 100 ML IV (23:49)
[2018-02-10] MEDS ORDERED: LEVETIRACETAM IV
[2018-02-10] MEDS ORDERED: D5W MINI IV
[2018-02-10 04:02] LABS: VALPROIC ACID (DEPAKOTE) 65.5 UG/ML (50.0-100.0)
[2018-02-10] MEDS: VALPROATE SOD INJ 1,000 MG in D5W 50 ML IV ×2 (04:09→15:28)
[2018-02-10 05:24] LABS: HEMATOCRIT 30.6 % (42.0-52.0); MEAN CORPUSCULAR VOLUME 88.7 fl (80.0-96.0); PLATELET COUNT, AUTOMATED 153 10^3/uL (150-450); RED BLOOD COUNT 3.45 10^6/uL (4.30-6.10); RED CELL DISTRIBUTION WIDTH 15.1 % (11.5-14.5); WHITE BLOOD COUNT 16.7 10^3/uL (4.0-10.0)
[2018-02-10] MEDS: FUROSEMIDE 40 MG/4 ML VIAL (J1940) IV ×2 (05:31→12:00)
[2018-02-10] MEDS: SODIUM CHLORIDE 0.9% INJ 10 ML SYR IV ×3 (05:31→18:04)
[2018-02-10] MEDS: hydrALAZINE INJ 20 MG/ML VIAL IV ×3 (05:31→17:58)
[2018-02-10 05:39] LABS: HEMOGLOBIN 10.7 g/dl (13.5-17.5)
[2018-02-10 05:53] LABS: ALBUMIN 1.5 GM/DL (3.2-5.2); ALBUMIN/GLOBULIN RATIO 0.43 (1.00-1.93); ALKALINE PHOSPHATASE 102 U/L (45-117); ALT/SGPT 11 U/L (12-78); ANION GAP 6 MEQ/L (8-16); AST/SGOT 37 U/L (7-37); BILIRUBIN,TOTAL 0.3 MG/DL (0.2-1.0); BLOOD UREA NITROGEN 45 MG/DL (7-18); CARBON DIOXIDE LEVEL 31 MEQ/L (21-32); CHLORIDE LEVEL 103 MEQ/L (98-107); CREATININE FOR GFR 1.63 MG/DL (0.70-1.30); GLOMERULAR FILTRATION RATE 43.2 (>35); GLUCOSE, FASTING 171 MG/DL (70-100); POTASSIUM SERUM 3.7 MEQ/L (3.5-5.1); SODIUM LEVEL 140 MEQ/L (136-145); URIC ACID 9.1 MG/DL (3.5-7.2)
[2018-02-10] MEDS: HumaLOG INSULIN (NovoLOG) PER UNIT SC ×3 (06:08→18:03)
[2018-02-10] MEDS: ACETAMINOPHEN TAB 650MG DOSE (2X325MG) NG ×2 (06:14→12:52)
[2018-02-10] MEDS: DOCUSATE SOD LIQ 100MG/10ML UDC NG (08:44)
[2018-02-10] MEDS: amLODIPine 10 MG TAB NG (08:45)
[2018-02-10] MEDS: POTASSIUM CHLORIDE 10% LIQ 20 MEQ/15 ML UDC NG (08:45)
[2018-02-10] MEDS: SINEMET 25-100 MG TAB NG ×3 (08:45→21:20)
[2018-02-10] MEDS: CEFEPIME HCL 2 GM in D5W MINI-BAG PLUS 50 ML IV ×2 (08:46→21:20)
[2018-02-10] MEDS: PANTOPRAZOLE 40MG INJ (PROTONIX) (C9113) IV (08:46)
[2018-02-10] MEDS: ASPIRIN 81 MG CHEW TABLET NG (09:00)
[2018-02-10 12:12] LABS: BEDSIDE GLUCOSE 213 MG/DL (83-110)
[2018-02-10] MEDS: levETIRAcetam INJection 750 MG in D5W 100 ML IV (12:34)
[2018-02-10] MEDS: VANCOMYCIN HCL 1,000 MG, VIAL MATE ADAPTER 1 EACH in D5W 250 ML IV ×2 (15:28→23:09)
[2018-02-10] MEDS: methylPREDNISolone INJ 40 MG/1 ML VIAL (J2920) IV (15:28)
[2018-02-10 15:46] LABS: KETONE, URINE AUTO RFX NEGATIVE (NEGATIVE); MUCUS, URINE RFX SMALL (NEGATIVE); NITRITE, URINE AUTO RFX NEGATIVE (NEGATIVE); RBC, URINE AUTO RFX 105 /HPF (0-3); SPECIFIC GRAVITY UR AUTO RFX 1.006 (1.002-1.035); SQUAM EPITHELIAL CELL UR AURFX 0 /HPF (0-6); YEAST LIKE CELL URINE AUTO RFX LARGE
[2018-02-10 15:47] LABS: LEUKOCYTE ESTERASE UR AUTO RFX 3+ (NEGATIVE); WBC, URINE AUTO RFX TNTC /HPF (0-3)
[2018-02-10 16:02] LABS: VANCOMYCIN LEVEL TROUGH 24.1 UG/ML (10.0-20.0)
[2018-02-10 17:40] LABS: BEDSIDE GLUCOSE 164 MG/DL (83-110)
[2018-02-10 19:49] LABS: ABG BASE EXCESS 5.6 (-2.0-2.0); ABG HCO3 29.9 MEQ/L (22.0-26.0); ABG O2 SATURATION 93.1 % (95.0-99.0); ABG PARTIAL PRESSURE CO2 42.3 mmHg (35.0-45.0); ABG PARTIAL PRESSURE O2 65.3 mmHg (75.0-100.0); ABG STANDARD HCO3 29.5 MEQ/L (22.0-26.0); ABG TOTAL CO2 31.2 MEQ/L (23.0-31.0); ABG pH (ARTERIAL) 7.467 UNITS (7.350-7.450)
[2018-02-10] MEDS: ATORVASTATIN 20 MG TAB NG (21:20)
[2018-02-10 23:54] LABS: BEDSIDE GLUCOSE 216 MG/DL (83-110)
[2018-02-11] MEDS: levETIRAcetam INJection 750 MG in D5W 100 ML IV ×2 (00:21→11:59)
[2018-02-11] MEDS: HumaLOG INSULIN (NovoLOG) PER UNIT SC ×4 (00:22→17:41)
[2018-02-11] MEDS: methylPREDNISolone INJ 40 MG/1 ML VIAL (J2920) IV ×2 (01:38→14:39)
[2018-02-11] MEDS: VALPROATE SOD INJ 1,000 MG in D5W 50 ML IV ×2 (03:53→16:16)
[2018-02-11 05:23] LABS: HEMATOCRIT 32.2 % (42.0-52.0); HEMOGLOBIN 10.8 g/dl (13.5-17.5); MEAN CORPUSCULAR HEMOGLOBIN 30.4 pg (27.0-33.0); MEAN CORPUSCULAR HGB CONC 33.5 g/dl (32.0-36.5); MEAN CORPUSCULAR VOLUME 90.7 fl (80.0-96.0); PLATELET COUNT, AUTOMATED 186 10^3/uL (150-450); RED BLOOD COUNT 3.55 10^6/uL (4.30-6.10); RED CELL DISTRIBUTION WIDTH 15.2 % (11.5-14.5); WHITE BLOOD COUNT 15.7 10^3/uL (4.0-10.0)
[2018-02-11 05:51] LABS: ANION GAP 7 MEQ/L (8-16); BLOOD UREA NITROGEN 51 MG/DL (7-18); CALCIUM LEVEL 7.2 MG/DL (8.8-10.2); CARBON DIOXIDE LEVEL 30 MEQ/L (21-32); CHLORIDE LEVEL 103 MEQ/L (98-107); CREATININE FOR GFR 1.88 MG/DL (0.70-1.30); GLOMERULAR FILTRATION RATE 36.7 (>35); GLUCOSE, FASTING 254 MG/DL (70-100); POTASSIUM SERUM 4.1 MEQ/L (3.5-5.1); SODIUM LEVEL 140 MEQ/L (136-145); URIC ACID 8.9 MG/DL (3.5-7.2)
[2018-02-11] MEDS: hydrALAZINE INJ 20 MG/ML VIAL IV ×4 (06:00→17:19)
[2018-02-11] MEDS: SODIUM CHLORIDE 0.9% INJ 10 ML SYR IV ×2 (06:00→17:41)
[2018-02-11] MEDS: amLODIPine 10 MG TAB NG (08:29)
[2018-02-11] MEDS: POTASSIUM CHLORIDE 10% LIQ 20 MEQ/15 ML UDC NG (08:29)
[2018-02-11] MEDS: SINEMET 25-100 MG TAB NG ×3 (08:29→20:03)
[2018-02-11] MEDS: PANTOPRAZOLE 40MG INJ (PROTONIX) (C9113) IV (08:29)
[2018-02-11] MEDS: DOCUSATE SOD LIQ 100MG/10ML UDC NG (08:30)
[2018-02-11] MEDS: ASPIRIN 81 MG CHEW TABLET NG (08:30)
[2018-02-11] MEDS: CEFEPIME HCL 2 GM in D5W MINI-BAG PLUS 50 ML IV ×2 (08:30→20:07)
[2018-02-11] MEDS ORDERED: ENOXAPARIN 30 MG/0.3 ML SYR (J1650) SC (09:00)
[2018-02-11 11:49] LABS: BEDSIDE GLUCOSE 236 MG/DL (83-110)
[2018-02-11] MEDS ORDERED: IPRATROPIUM 0.5MG/ALBUTEROL 2.5MG INH SOL UD 3ML (DUONEB)(J7620) NEB (14:45)
[2018-02-11 17:29] LABS: BEDSIDE GLUCOSE 210 MG/DL (83-110)
[2018-02-11] MEDS: ATORVASTATIN 20 MG TAB NG (20:03)
[2018-02-11 22:40] LABS: VANCOMYCIN LEVEL TROUGH 19.4 UG/ML (10.0-20.0)
[2018-02-11] MEDS: VANCOMYCIN HCL 1,000 MG, VIAL MATE ADAPTER 1 EACH in D5W 250 ML IV (23:19)
[2018-02-11 23:26] LABS: BEDSIDE GLUCOSE 224 MG/DL (83-110)
[2018-02-12] MEDS: levETIRAcetam INJection 750 MG in D5W 100 ML IV ×2 (00:24→12:15)
[2018-02-12] MEDS: HumaLOG INSULIN (NovoLOG) PER UNIT SC ×4 (00:25→18:25)
[2018-02-12] MEDS: methylPREDNISolone INJ 40 MG/1 ML VIAL (J2920) IV ×2 (02:01→13:25)
[2018-02-12] MEDS: VALPROATE SOD INJ 1,000 MG in D5W 50 ML IV ×2 (04:16→16:58)
[2018-02-12 05:37] LABS: HEMATOCRIT 30.9 % (42.0-52.0); HEMOGLOBIN 10.3 g/dl (13.5-17.5); MEAN CORPUSCULAR HEMOGLOBIN 30.7 pg (27.0-33.0); MEAN CORPUSCULAR HGB CONC 33.3 g/dl (32.0-36.5); MEAN CORPUSCULAR VOLUME 92.2 fl (80.0-96.0); PLATELET COUNT, AUTOMATED 238 10^3/uL (150-450); RED BLOOD COUNT 3.35 10^6/uL (4.30-6.10); RED CELL DISTRIBUTION WIDTH 15.2 % (11.5-14.5); WHITE BLOOD COUNT 16.3 10^3/uL (4.0-10.0)
[2018-02-12 05:59] LABS: ANION GAP 9 MEQ/L (8-16); BLOOD UREA NITROGEN 60 MG/DL (7-18); CALCIUM LEVEL 7.4 MG/DL (8.8-10.2); CARBON DIOXIDE LEVEL 28 MEQ/L (21-32); CHLORIDE LEVEL 104 MEQ/L (98-107); CREATININE FOR GFR 1.73 MG/DL (0.70-1.30); GLOMERULAR FILTRATION RATE 40.4 (>35); GLUCOSE, FASTING 237 MG/DL (70-100); POTASSIUM SERUM 4.7 MEQ/L (3.5-5.1); SODIUM LEVEL 141 MEQ/L (136-145)
[2018-02-12] MEDS: hydrALAZINE INJ 20 MG/ML VIAL IV ×5 (06:00→23:42)
[2018-02-12] MEDS: SODIUM CHLORIDE 0.9% INJ 10 ML SYR IV ×2 (06:31→18:24)
[2018-02-12] MEDS: DOCUSATE SOD LIQ 100MG/10ML UDC NG (08:38)
[2018-02-12] MEDS: PANTOPRAZOLE 40MG INJ (PROTONIX) (C9113) IV (08:52)
[2018-02-12] MEDS: ASPIRIN 81 MG CHEW TABLET NG (08:53)
[2018-02-12] MEDS: CEFEPIME HCL 2 GM in D5W MINI-BAG PLUS 50 ML IV ×2 (08:53→20:33)
[2018-02-12] MEDS: SINEMET 25-100 MG TAB NG ×3 (08:54→20:32)
[2018-02-12] MEDS: amLODIPine 10 MG TAB NG (08:55)
[2018-02-12] MEDS: POTASSIUM CHLORIDE 10% LIQ 20 MEQ/15 ML UDC NG (09:00)
[2018-02-12 12:00] LABS: BEDSIDE GLUCOSE 226 MG/DL (83-110)
[2018-02-12 17:53] LABS: BEDSIDE GLUCOSE 240 MG/DL (83-110)
[2018-02-12] MEDS: ATORVASTATIN 20 MG TAB NG (20:32)
[2018-02-12] MEDS: VANCOMYCIN HCL 1,000 MG, VIAL MATE ADAPTER 1 EACH in D5W 250 ML IV (23:15)
[2018-02-13 00:20] LABS: BEDSIDE GLUCOSE 188 MG/DL (83-110)
[2018-02-13] MEDS: HumaLOG INSULIN (NovoLOG) PER UNIT SC ×3 (00:22→12:07)
[2018-02-13] MEDS: levETIRAcetam INJection 750 MG in D5W 100 ML IV ×2 (00:23→12:04)
[2018-02-13] MEDS: ACETAMINOPHEN TAB 650MG DOSE (2X325MG) NG (00:23)
[2018-02-13] MEDS: methylPREDNISolone INJ 40 MG/1 ML VIAL (J2920) IV ×2 (02:00→14:29)
[2018-02-13] MEDS: VALPROATE SOD INJ 1,000 MG in D5W 50 ML IV ×2 (03:42→16:36)
[2018-02-13] MEDS: hydrALAZINE INJ 20 MG/ML VIAL IV ×3 (05:43→17:15)
[2018-02-13 05:47] LABS: BASO % 0.2 % (0.0-1.0); EOS % 0.1 % (0.0-3.0); HEMATOCRIT 30.7 % (42.0-52.0); HEMOGLOBIN 10.2 g/dl (13.5-17.5); LYMPH # 0.4 10^3/uL (1.5-4.5); LYMPH % 3.1 % (24.0-44.0); MEAN CORPUSCULAR HEMOGLOBIN 30.7 pg (27.0-33.0); MEAN CORPUSCULAR HGB CONC 33.2 g/dl (32.0-36.5); MEAN CORPUSCULAR VOLUME 92.5 fl (80.0-96.0); MONO # 1.3 10^3/uL (0.0-0.8); MONO % 10.5 % (0.0-5.0); NEUTROPHILS # 10.3 10^3/uL (1.8-7.7); NEUTROPHILS % 84.1 % (36.0-66.0); PLATELET COUNT, AUTOMATED 296 10^3/uL (150-450); RED BLOOD COUNT 3.32 10^6/uL (4.30-6.10); WHITE BLOOD COUNT 12.2 10^3/uL (4.0-10.0)
[2018-02-13 06:21] LABS: ALBUMIN 1.5 GM/DL (3.2-5.2); ALBUMIN/GLOBULIN RATIO 0.41 (1.00-1.93); ALKALINE PHOSPHATASE 128 U/L (45-117); ALT/SGPT 12 U/L (12-78); ANION GAP 9 MEQ/L (8-16); AST/SGOT 27 U/L (7-37); BILIRUBIN,TOTAL 0.2 MG/DL (0.2-1.0); BLOOD UREA NITROGEN 61 MG/DL (7-18); CALCIUM LEVEL 7.5 MG/DL (8.8-10.2); CARBON DIOXIDE LEVEL 29 MEQ/L (21-32); CHLORIDE LEVEL 104 MEQ/L (98-107); CPK CREATINE PHOSPHOKINASE 91 U/L (39-308); CREATININE FOR GFR 1.63 MG/DL (0.70-1.30); GLOMERULAR FILTRATION RATE 43.2 (>35); GLUCOSE, FASTING 217 MG/DL (70-100); POTASSIUM SERUM 4.9 MEQ/L (3.5-5.1); SODIUM LEVEL 142 MEQ/L (136-145); TOTAL PROTEIN 5.2 GM/DL (6.4-8.2); TROPONIN I 0.04 NG/ML (< 0.10)
[2018-02-13 06:24] LABS: MB/CK RELATIVE INDEX 2.19 (< OR =4)
[2018-02-13] MEDS: SODIUM CHLORIDE 0.9% INJ 10 ML SYR IV ×2 (06:25→17:28)
[2018-02-13] MEDS: POTASSIUM CHLORIDE 10% LIQ 20 MEQ/15 ML UDC NG (07:26)
[2018-02-13] MEDS: DOCUSATE SOD LIQ 100MG/10ML UDC NG (07:26)
[2018-02-13] MEDS: SINEMET 25-100 MG TAB NG ×3 (09:29→20:26)
[2018-02-13] MEDS: ASPIRIN 81 MG CHEW TABLET NG (09:29)
[2018-02-13] MEDS: CEFEPIME HCL 2 GM in D5W MINI-BAG PLUS 50 ML IV (09:30)
[2018-02-13] MEDS: PANTOPRAZOLE 40MG INJ (PROTONIX) (C9113) IV (09:30)
[2018-02-13] MEDS: amLODIPine 5 MG TAB PO (09:30)
[2018-02-13 11:55] LABS: BEDSIDE GLUCOSE 239 MG/DL (83-110)
[2018-02-13 17:23] LABS: BEDSIDE GLUCOSE 245 MG/DL (83-110)
[2018-02-13] MEDS ORDERED: ONDANSETRON 4 MG ORAL DISINTEGRATING TAB (Q0162 PER 1MG) PO (17:30)
[2018-02-13] MEDS ORDERED: SCOPOLAMINE 1MG TRANSDERMAL PATCH TOP (17:30)
[2018-02-13] MEDS ORDERED: ATROPINE SULFATE 1% OP SOLN 2 ML BTL SL (17:30)
[2018-02-13] MEDS ORDERED: LORazepam 2 MG/ML VIAL (J2060) IV (17:30)
[2018-02-13] MEDS ORDERED: MORPHINE 4 MG/ML 1ML VIAL/SYRINGE (J2270) IV (17:30)
[2018-02-13] MEDS ORDERED: ACETAMINOPHEN TAB 650MG DOSE (2X325MG) PO (17:30)
[2018-02-13] MEDS ORDERED: LORazepam 1 MG TAB PO (17:30)
[2018-02-14 00:06] LABS: CSFLYM10 Absent (.); CSFLYM11 Absent (.); CSFLYM12 Negative (.); CSFLYM14 Absent (.); CSFLYM15 Absent (.); CSFLYM16 Absent (.); CSFLYM17 Negative (.); CSFLYM2 Absent (.); CSFLYM3 Absent (.); CSFLYM4 Absent (.); CSFLYM5 Absent (.); CSFLYM6 Absent (.); CSFLYM7 Absent (.); CSFLYM8 Absent (.); CSFLYM9 Absent (.)
[2018-02-14] MEDS: SODIUM CHLORIDE 0.9% INJ 10 ML SYR IV ×3 (05:00→18:45)
[2018-02-14] MEDS: SINEMET 25-100 MG TAB NG (09:55)
[2018-02-14] MEDS: DOCUSATE SOD LIQ 100MG/10ML UDC NG (09:55)
[2018-02-15] MEDS: SODIUM CHLORIDE 0.9% INJ 10 ML SYR IV ×2 (05:09→18:53)
[2018-02-16] MEDS: SODIUM CHLORIDE 0.9% INJ 10 ML SYR IV ×2 (06:26→18:18)
[2018-02-16] MEDS: MORPHINE 10MG/0.5ML ORAL CONCENTRATE SOLUTION U/D SL (06:40)
[2018-02-17] MEDS: SODIUM CHLORIDE 0.9% INJ 10 ML SYR IV ×2 (05:12→18:10)
[2018-02-18] MEDS: SODIUM CHLORIDE 0.9% INJ 10 ML SYR IV ×2 (05:06→17:39)
[2018-02-18] MEDS: MORPHINE 10MG/0.5ML ORAL CONCENTRATE SOLUTION U/D SL ×2 (20:10→22:35)
[2018-02-19] MEDS: MORPHINE 10MG/0.5ML ORAL CONCENTRATE SOLUTION U/D SL ×2 (06:02→08:39)
== END 2018-02-19 08:58 | disposition hospice, inpatient (51) | DRG 70 ==
LOC: M MSPAV 02-13 21:23 → M ICU 19:50
PROVIDERS: Family Medicine
PROC: 009U3ZZ Drainage of Spinal Canal, Percutaneous Approach (ICD-10-PCS; 2018-02-08)
PROC: 30233N1 Transfusion of Nonautologous Red Blood Cells into Peripheral Vein, Percutaneous Approach (ICD-10-PCS; principal; 2018-02-09)
DX: G93.40 Encephalopathy, unspecified (principal); J18.9 Pneumonia, unspecified organism; A86 Unspecified viral encephalitis; E87.0 Hyperosmolality and hypernatremia; E46 Unspecified protein-calorie malnutrition; G31.83 Neurocognitive disorder with Lewy bodies; F02.80 Dementia in other diseases classified elsewhere, unspecified severity, without behavioral disturbance, psychotic disturbance, mood disturbance, and anxiety; I12.9 Hypertensive chronic kidney disease with stage 1 through stage 4 chronic kidney disease, or unspecified chronic kidney disease; I67.2 Cerebral atherosclerosis; Z51.5 Encounter for palliative care; Z66 Do not resuscitate; E78.5 Hyperlipidemia, unspecified; E11.22 Type 2 diabetes mellitus with diabetic chronic kidney disease; N18.9 Chronic kidney disease, unspecified; I25.10 Atherosclerotic heart disease of native coronary artery without angina pectoris; Z86.73 Personal history of transient ischemic attack (TIA), and cerebral infarction without residual deficits; R41.82 Altered mental status, unspecified; G40.109 Localization-related (focal) (partial) symptomatic epilepsy and epileptic syndromes with simple partial seizures, not intractable, without status epilepticus; R04.0 Epistaxis; M10.042 Idiopathic gout, left hand; D64.9 Anemia, unspecified; E87.6 Hypokalemia; D69.6 Thrombocytopenia, unspecified; Y95 Nosocomial condition; Z79.899 Other long term (current) drug therapy